=== PATIENT | female | born 2000 | race Two or more races ===

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

== ENCOUNTER 2020-09-17 20:36 | Emergency (ER) | payer SELFPAY ==
[~2020-09-17] VITALS: Ht 157.5 cm; Wt 66.7 kg
[~2020-09-17 20:36] MED LIST changes: +NKM; +ROBAXIN-750750 MG PO
[2020-09-17 21:00] VITALS: BP 121/78
--- NOTE | 2020-09-17 21:00 | NUR ---
ED Nurse Note: pt presents to ED c/o mid-sternal CP that is exacerbated by coughing. pt reports that she tested positive for COVID-19 4 days ago, has had a cough for 1 week but denies any fevers or loss of taste or smell or N/V/D. 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
--- NOTE | 2020-09-17 21:02 | Emergency Room Report ---
History of Present Illness General Chief Complaint: chest pain Source: Patient Present Illness HPI Disclaimer: Please note that this report is being documented using DRAGON technology. This can lead to erroneous entry secondary to incorrect interpretation by the dictating instrument. HPI: 20-year-old female history of asthma presents for evaluation of chest pain. Patient states she was diagnosed with COVID-19 4 days ago. Reports worsening shortness of breath and pain in the center of the chest. Pain is exacerbated by coughing and relieved by rest. She denies any pressure or squeezing sensation in the chest. Reports increased phlegm. Denies fever, chills, nausea, vomiting, diarrhea. Not currently taking any medication aside from her albuterol inhaler. Denies wheezing or stridor. Denies sore throat or nasal congestion. PMH: Asthma PSH: Reviewed Allergies: Reviewed Social Hx: Reviewed Allergies: Coded Allergies: No Known Allergies (Unverified , 12/21/17) Nursing Documentation-PMH Hx Asthma: Yes Review of Systems All Other Systems: negative except mentioned in HPI Physical Exam General: Awake and alert, no acute distress HEENT: NC/AT. EOMI. Chest Wall: No tenderness, no crepitus. Cardiovascular: RRR. S1 and S2 normal. No murmur appreciated Resp: Normal work of breathing. No cough, wheezing or crackles appreciated Abdomen: Abdomen is soft, nondistended. Nontender Skin: Intact. No abrasions, laceration or rash over the exposed skin MSK: Normal tone and bulk. Moving all extremities. No obvious deformity. Neuro: Awake and alert. Mentating appropriately. Medical Decision Making Diagnostic Impression: Primary Impression: Chest wall discomfort Additional Impression: COVID-19 ER Course Is a 20-year-old female recent diagnosis COVID-19 presenting for evaluation of worsening cough and chest discomfort. Differential includes was not limited to bronchitis, pneumonia, sequela of COVID-19 infection, costochondritis, pleurisy to name a few. Patient arrives saturating 100% on room air no respiratory distress and no evidence of asthma exacerbation. Heart rate within normal limits. Saturating 100% on room air without evidence of respiratory distress. Chest x-ray shows no obvious infiltrates, consolidations or edema. White count within normal limits at 7.1. Mild normocytic anemia with hemoglobin 11.1. Ch emistry and troponin within normal limits. Will prescribe cough suppressant. Stable for outpatient follow-up. Instructed to continue isolating and to follow-up with PMD. Instructed to return with new or worsening symptoms. She understands and agrees with treatment plan. Laboratory Tests Test 09/17/20 21:05 White Blood Count 7.1 K/UL (4.8-10.8) Red Blood Count 4.10 M/UL (4.20-5.40) L Hemoglobin 11.1 G/DL (12.0-16.0) L Hematocrit 33.8 % (37.0-47.0) L Mean Corpuscular Volume 82 FL (80-99) Mean Corpuscular Hemoglobin 27.0 PG (27.0-31.0) Mean Corpuscular Hemoglobin Concent 32.8 G/DL (32.0-36.0) Red Cell Distribution Width 13.7 % (11.6-14.8) Platelet Count 194 K/UL (150-450) Mean Platelet Volume 9.6 FL (6.5-10.1) Neutrophils (%) (Auto) 47.9 % (45.0-75.0) Lymphocytes (%) (Auto) 35.2 % (20.0-45.0) Monocytes (%) (Auto) 13.7 % (1.0-10.0) H Eosinophils (%) (Auto) 1.6 % (0.0-3.0) Basophils (%) (Auto) 1.5 % (0.0-2.0) Sodium Level 143 MMOL/L (136-145) Potassium Level 3.7 MMOL/L (3.5-5.1) Chloride Level 107 MMOL/L (98-107) Carbon Dioxide Level 26 MMOL/L (21-32) Anion Gap 11 mmol/L (5-15) Blood Urea Nitrogen 8 mg/dL (7-18) Creatinine 0.8 MG/DL (0.55-1.30) Estimated Glomerular Filtration Rate > 60 mL/min (>60) Glucose Level 108 MG/DL (74-106) H Calcium Level 8.3 MG/DL (8.5-10.1) L Total Bilirubin 0.2 MG/DL (0.2-1.0) Aspartate Amino Transferase (AST) 17 U/L (15-37) Alanine Aminotransferase (ALT) 14 U/L (12-78) Alkaline Phosphatase 60 U/L (46-116) Troponin I 0.005 ng/mL (0.000-0.056) Total Protein 7.3 G/DL (6.4-8.2) Albumin 3.6 G/DL (3.4-5.0) Globulin 3.7 g/dL Albumin/Globulin Ratio 1.0 (1.0-2.7) EKG Diagnostic Results Troponin ordered: Yes When was troponin ordered?: Sep 17, 2020 EKG Time: 21:02 Rate: normal Rhythm: NSR ST Segments: no acute changes Other Impression Sinus rhythm, normal axis, normal intervals, no ST segment changes. QTC 408 ms Rhythm Strip Diag. Results Rhythm Strip Time: 21:02 EP Interpretation: yes Rate: 64 Rhythm: NSR, no PVC's, no ectopy Chest X-Ray Diagnostic Results Chest X-Ray Diagnostic Results : Chest X-Ray Ordered: Yes # of Views/Limited/Complete: 1 View Indication: Chest Pain EP Interpretation: Yes Interpretation: no consolidation, no effusion, no pneumothorax, no acute cardiopulmonary disease Impression: No acute disease Electronically Signed by: Electronically signed by Dr. Joaquín Chacon MD Disposition: HOME, SELF-CARE Condition: Stable Scripts Benzonatate* (TESSALON PERLE*) 100 Mg Capsule 100 MG ORAL THREE TIMES A DAY, #30 PERLE Prov: Joaquín Chacon MD 09/17/20 Acetaminophen* (TYLENOL EXTRA STRENGTH*) 500 Mg Tablet 500 MG ORAL Q8H PRN for Prn Headache/Temp > 101, #30 TAB 0 Refills Prov: Joaquín Chacon MD 09/17/20 Referrals: NON PHYSICIAN (PCP) Joaquín Chacon MD Sep 17, 2020 21:02
[2020-09-17] MEDS ORDERED: TYLENOL EXTRA500 MG ORAL (21:10)
--- NOTE | 2020-09-17 21:40 | Diagnostic Imaging Report ---
EXAM: XR Chest, 1 View CLINICAL HISTORY: SOB TECHNIQUE: Frontal view of the chest. COMPARISON: 12/21/2017 FINDINGS: Lungs: Unremarkable. No consolidation. Pleural space: Unremarkable. No pneumothorax. Heart: Unremarkable. No cardiomegaly. Mediastinum: Unremarkable. Bones/joints: Unremarkable. IMPRESSION: No acute cardiopulmonary disease.
[2020-09-17 21:44] LABS: BASOPHILS % (AUTO) 1.5 % (0.0-2.0); EOSINOPHILS % (AUTO) 1.6 % (0.0-3.0); HEMATOCRIT 33.8 % (37.0-47.0); HEMOGLOBIN 11.1 G/DL (12.0-16.0); LYMPHOCYTES % (AUTO) 35.2 % (20.0-45.0); MEAN CORPUSCULAR VOLUME 82 FL (80-99); MONOCYTES % (AUTO) 13.7 % (1.0-10.0); NEUTROPHILS % (AUTO) 47.9 % (45.0-75.0); PLATELET COUNT 194 K/UL (150-450); RED CELL DISTRIBUTION WIDTH 13.7 % (11.6-14.8); WHITE BLOOD COUNT 7.1 K/UL (4.8-10.8)
[2020-09-17 21:59] LABS: ANION GAP 11 mmol/L (5-15); BLOOD UREA NITROGEN 8 mg/dL (7-18); CALCIUM 8.3 MG/DL (8.5-10.1); CARBON DIOXIDE 26 MMOL/L (21-32); CHLORIDE 107 MMOL/L (98-107); CREATININE 0.8 MG/DL (0.55-1.30); POTASSIUM 3.7 MMOL/L (3.5-5.1); SODIUM 143 MMOL/L (136-145)
[2020-09-17 22:04] LABS: ALANINE AMINOTRANSFERASE 14 U/L (12-78); ALBUMIN 3.6 G/DL (3.4-5.0); ALKALINE PHOSPHATASE 60 U/L (46-116); ASPARTATE AMINO TRANSFERASE 17 U/L (15-37); BILIRUBIN,TOTAL 0.2 MG/DL (0.2-1.0)
[2020-09-17] MEDS ORDERED: TESSALON PERLE100 MG ORAL (22:12)
[2020-09-17 22:25] VITALS: BP 121/78
--- NOTE | 2020-09-17 22:25 | NUR ---
ER DISCHARGE NOTE: Patient is cleared to be discharged per ERMD, pt is aox4, on room air, with stable vital signs. pt was given dc and prescription instructions, pt was able to verbalize understanding, pt id band and iv site removed without complications. pt is able to ambulate with steady gait. pt took all belongings.
== END 2020-09-17 22:25 | disposition home or self-care (01) ==
LOC: EMR 20:56
DX: U07.1 COVID-19 (principal); R07.9 Chest pain, unspecified; D64.9 Anemia, unspecified
CPT/HCPCS: 36415; 71045; 80053; 84484; 85025; 93005; 99283